=== PATIENT | male | born 1970 | race Two or more races ===

== ENCOUNTER 2017-03-19 11:53 | Emergency (ER) | payer OTHER ==
[2017-03-19 12:06] VITALS: BP 121/82
--- NOTE | 2017-03-19 12:33 | UC ---
Skin Complaint HPI - HPI Summary HPI Summary: This is an otherwise healthy 46 yo male who presented with c/o tick bite. He attempted to remove the tick himself this am, but believes a portion is retained. He thinks the tick was in place <24 hrs. It was not engorged. Some localized erythema. No systemic sx's. - History of Current Complaint Chief Complaint: UCSkin Stated Complaint: TICK - Allergy/Home Medications Allergies/Adverse Reactions: Allergies Allergy/AdvReac Type Severity Reaction Status Date / Time No Known Allergies Allergy Verified 03/19/17 12:06 Review of Systems Constitutional: Negative Skin: Other - insect bite Eyes: Negative ENT: Negative Respiratory: Negative Cardiovascular: Negative Gastrointestinal: Negative Genitourinary: Negative Motor: Negative Neurovascular: Negative Musculoskeletal: Negative Neurological: Negative Psychological: Negative Is Patient Immunocompromised?: No All Other Systems Reviewed And Are Negative: Yes PMH/Surg Hx/FS Hx/Imm Hx Previously Healthy: Yes - Surgical History Surgical History: None - Family History Known Family History: Positive: None - Social History Alcohol Use: Weekly Substance Use Type: None Smoking Status (MU): Never Smoked Tobacco Physical Exam Triage Information Reviewed: Yes Appearance: Well-Appearing Vital Signs: Initial Vital Signs Temp 98.4 F 03/19/17 12:03 Pulse 55 03/19/17 12:03 Resp 16 03/19/17 12:03 BP 121/82 03/19/17 12:03 Pulse Ox 100 03/19/17 12:03 Vital Signs Reviewed: Yes ENT: Positive: Normal ENT inspection Neck: Positive: Supple, Nontender Respiratory: Positive: Normal breath sounds. Negative: Crackles, Rhonchi, Wheezing Cardiovascular: Positive: RRR, No Murmur Abdomen Description: Positive: Nontender, Soft Musculoskeletal: Positive: Strength Intact Neurological: Positive: Alert Psychological Exam: Normal Skin: Positive: Other - small circumferential erythema around local area of trauma to the RLQ of the abd, no active bleeding, no purulent drainage Course/Dx - Course Course Of Treatment: This is an otherwise healthy 46 yo male who presents with a tick bite. He was concerned about a retained portion of the tick. Recommended that further intervention was not necessary and may cause more harm than good. Discussed risks/benefits of Lyme prophylaxis with doxy. He requested that an Rx for doxy be sent and he will decide later whether to take it. Informed him that he is at low risk for Lyme transmission. - Differential Diagnoses - Skin Complaint Differential Diagnoses: Foreign Body, Tick Born Illness, Viral Exanthem - Diagnoses Provider Diagnoses: Tick bite Discharge - Discharge Plan Condition: Stable Disposition: HOME Prescriptions: DOXYcycline CAP(*) [DOXYcycline 100MG CAP(*)] 200 mg PO ONCE #2 cap Patient Education Materials: Tick Bite (ED) Referrals: Jay Burgess MD [Primary Care Provider] - If Needed Additional Instructions: Instructions: 1. Take antibiotic as directed 2. Monitor for signs of infection
== END 2017-03-19 12:30 | disposition home or self-care (01) ==
LOC: UCEAST 11:53
DX: S30.861A Insect bite (nonvenomous) of abdominal wall, initial encounter (principal); W57.XXXA Bitten or stung by nonvenomous insect and other nonvenomous arthropods, initial encounter; Y92.9 Unspecified place or not applicable
CPT/HCPCS: 99212; G0463

== ENCOUNTER 2017-07-21 18:32 | Emergency (ER) | payer OTHER | END 2017-07-21 18:53 | disposition left against medical advice (07) | LOC: UCEAST 18:32 | DX: R39.9 Unspecified symptoms and signs involving the genitourinary system (principal); Z53.21 Procedure and treatment not carried out due to patient leaving prior to being seen by health care provider ==